=== PATIENT | female | born 1945 | race Caucasian/White ===

== ENCOUNTER 2016-11-16 11:59 | Emergency (ER) | payer SELFPAY ==
[~2016-11-16] VITALS: Ht 152.4 cm; Wt 58.0 kg
[2016-11-16 12:06] VITALS: Ht 152.4 cm; Wt 58.0 kg
[2016-11-16] MEDS ORDERED: HYD25 PO (12:45)
[2016-11-16] MEDS ORDERED: NICARDipine HCL 30 MG CAPSULE PO ONE (13:00)
--- NOTE | 2016-11-16 14:32 | ERD ---
ER Documentation Chief Complaint Date/Time DATE: 11/16/16 TIME: 14:30 Chief Complaint pt bib family from PMD , sent for elevated BP , no HX HPI Patient is a 71-year-old female with no medical problems who presents with high blood pressure. She said that she felt weak all over and felt cold. She has no pain. She denies chest pain. She was seen today at her local clinic at the [facility]. They sent her to the ER because her blood pressure was over 200. She has not been to a primary doctor in 10 years. Upon review of old medical records this is the patient's first visit to the emergency department. ROS All systems reviewed and are negative except as per history of present illness. Medications Home Meds Active Scripts Hydrochlorothiazide* (Hydrochlorothiazide*) 25 Mg Tab, 25 MG PO DAILY, #30 TAB Prov:CARLIN NUNEZ MD 11/16/16 Allergies Allergies: Coded Allergies: No Known Allergy (Unverified , 11/16/16) PMhx/Soc Medical and Surgical Hx: pt denies Medical Hx, pt denies Surgical Hx Hx Alcohol Use: No Hx Substance Use: No Hx Tobacco Use: No Smoking Status: Never smoker FmHx Family History: No diabetes Physical Exam Vitals Vital Signs Date Time Temp Pulse Resp B/P Pulse Ox O2 Delivery O2 Flow Rate FiO2 11/16/16 12:06 98.3 68 18 228/112 99 Physical Exam Const: No acute distress, smiling and happy Head: Atraumatic Eyes: Normal Conjunctiva ENT: Normal External Ears, Nose and Mouth. Neck: Full range of motion..~ No meningismus. Resp: Clear to auscultation bilaterally Cardio: Regular rate and rhythm, no murmurs Abd: Soft, non tender, non distended. Normal bowel sounds Skin: No petechiae or rashes Back: No midline or flank tenderness Ext: No cyanosis, or edema Neur: Awake and alert, cranial nerves II through XII are intact, strength is 5 out of 5 in all 4 extremities, no slurred speech Psych: Normal Mood and Affect Results 24 hrs Current Medications Medications (Trade) Dose Ordered Sig/Long Route PRN Reason Start Time Stop Time Status Last Admin Dose Admin Nicardipine HCl (Cardene) 30 mg ONCE ONCE PO 11/16/16 13:00 11/16/16 13:01 DC 11/16/16 12:52 Procedures/MDM EKG read by me: Rate/Rhythm: Regular rate and rhythm at a normal rate Intervals: Normal Impression: No evidence of ischemia or arrhythmia Patient is a 71-year-old female with no medical problems who presents with hypertension. Her blood pressure was over 200 she was given Cardizem by mouth. She is well appearing, smiling, and happy. There are no signs of stroke or serious etiology. I doubt acute coronary syndrome. I believe outpatient management is appropriate. I doubt she has 2 hypertensive emergency. The patient will be given a prescription for hydrochlorothiazide but will need to follow-up with her primary doctor within 1 week for a repeat blood pressure check. She can return for any worsening symptoms. Departure Diagnosis: Primary Impression: Hypertension Hypertension type: essential hypertension Qualified Code: I10 - Essential hypertension Condition: Fair Patient Instructions: High Blood Pressure (Hypertension) Referrals: [facility] Additional Instructions: Llame al doctor maddi khan (Referral Sources) MAANA y danny trev SAKINA PARA DENTRO DE TREV SEMANA. Dgale a la secretaria que nosotros le instruimos hacer esta sakina.Avise o llame si guardado condicin se empeora antes de la sakina. CARLIN NUNEZ MD Nov 16, 2016 14:32
== END 2016-11-16 13:05 | disposition home or self-care (01) ==
LOC: E/R 11:59
DX: I10 Essential (primary) hypertension (principal)
CPT/HCPCS: 93005; 99283